=== PATIENT | male | born 1995 | race African-American/Black ===

== ENCOUNTER 2019-01-17 12:52 | Emergency (ER) | payer OTHER ==
[~2019-01-17] VITALS: Ht 185.4 cm; Wt 90.3 kg
[2019-01-17 12:55] VITALS: Ht 185.4 cm; Wt 90.3 kg
[2019-01-17 13:54] LABS: BASOPHIL % 0.5 % (0-2); PLATELET COUNT 228 x10^3mcL (130-400); RED CELL DISTRIBUTION WIDTH 13.4 % (11.5-14.5)
[2019-01-17 14:23] LABS: CALCIUM 9.5 mg/dL (8.5-10.1); CARBON DIOXIDE 31.6 mmol/L (21-32); CHLORIDE SERUM 102 mmol/L (98-107); CREATININE SERUM 1.2 mg/dL (0.7-1.3); GFR1 > 60 mL/min; GLUCOSE SERUM 97 mg/dL (74-106); POTASSIUM SERUM 4.7 mmol/L (3.5-5.1); SODIUM SERUM 139 mmol/L (136-145)
[2019-01-17 14:50] LABS: CK-MB 5.8 ng/mL (0-3.6)
[2019-01-17 15:09] VITALS: BP 145/88
== END 2019-01-17 15:09 | disposition home or self-care (01) ==
LOC: ED 12:52
PROVIDERS: Emergency Medicine
DX: J45.901 Unspecified asthma with (acute) exacerbation (principal)
CPT/HCPCS: 36600; J2930; J7613; J7644; Q0092